=== PATIENT | female | born 1940 ===

== ENCOUNTER 2017-10-31 16:27 | Observation (INO) | payer OTHER ==
[2017-10-31] MEDS ORDERED: Sodium Chloride 0.9% 1,000 ML IV SCH (17:45)
--- NOTE | 2017-10-31 18:01 | ED PDOC ---
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 Family denies focal weakness or change in speech, but needs assistance ambulating. They state she is nearly blind due to glaucoma. Recently immigrated from [facility], had poor health care for several years prior per son due to lack of medications. No reported fever but +phlegm/ cough. Past Medical History Reviewed: Historical Data, Nursing Documentation, Vital Signs Vital Signs: Last Vital Signs Temp 98.0 F 11/01/17 13:01 Pulse 76 11/01/17 13:01 Resp 16 11/01/17 13:01 BP 101/63 11/01/17 13:01 Pulse Ox 99 11/01/17 13:00 - Medical History PMH: Diabetes, HTN - Surgical History Other surgeries: hysterectomy, breast reduction many yrs ago - Family History Family History: States: Unknown Family Hx - Living Arrangements Living Arrangements: With Family - Social History Current smoker - smoking cessation education provided: No Alcohol: None - Home Medications Home Medications: Ambulatory Orders Medication Instructions Recorded Aspirin [Aspirin Chewable] 81 mg PO DAILY 10/31/17 Calcium Carbonate/Vitamin D3 1 tab PO DAILY 10/31/17 [Calcium 500+D Tablet Chew] Losartan [Cozaar] 50 mg PO DAILY 10/31/17 Insulin Glargine,Hum.rec.anlog 10 unit SQ HS 30 Days #3 insuln.pen 11/01/17 [Lantus Solostar] metFORMIN [glucOPHAGE] 500 mg PO BID #60 tab 11/01/17 - Allergies Allergies/Adverse Reactions: Allergies Allergy/AdvReac Type Severity Reaction Status Date / Time No Known Allergies Allergy Verified 10/31/17 16:45 Review of Systems Constitutional: Positive for: Weakness, Malaise Eyes: Positive for: Vision Change ENT: Negative for: Throat Pain Cardiovascular: Positive for: Palpitations. Negative for: Chest Pain Respiratory: Positive for: Cough. Negative for: Shortness of Breath Gastrointestinal: Negative for: Nausea, Vomiting, Abdominal Pain Genitourinary Female: Positive for: Frequency. Negative for: Dysuria Musculoskeletal: Negative for: Neck Pain, Back Pain Skin: Negative for: Rash, Lesions Neurological: Positive for: Weakness (generalized), Numbness, Confusion, Altered Mental Status (confused), Dizziness. Negative for: Change in Speech Psych: Negative for: Suicidal ideation Physical Exam - Reviewed Nursing Documentation Reviewed: Yes Vital Signs Reviewed: Yes - Physical Exam Appears: Positive for: Non-toxic (elderly female dry) Head Exam: Positive for: ATRAUMATIC, NORMAL INSPECTION, NORMOCEPHALIC Skin: Positive for: Normal Color, Warm, DRY Eye Exam: Positive for: Normal appearance, EOMI, PERRL, Other (vision poor grossly bilaterally) ENT: Positive for: Normal ENT Inspection Neck: Positive for: Normal, Painless ROM Cardiovascular/Chest: Positive for: Regular Rate, Rhythm Respiratory: Positive for: CNT, Normal Breath Sounds Gastrointestinal/Abdominal: Positive for: Soft. Negative for: Tenderness, Guarding Back: Positive for: Normal Inspection Extremity: Positive for: Normal ROM Neurologic/Psych: Positive for: Alert, Facial Droop (?L facial droop mild). Negative for: Oriented (confused but awake and responsive) - Laboratory Results Result Diagrams: 11/01/17 05:45 11/01/17 05:45 - ECG O2 Sat by Pulse Oximetry: 100 Medical Decision Making Medical Decision Making: labs reveal moderate hyperglycemia ? facial droop on exam ASA ordered and admit hospitalist for workup Disposition - Clinical Impression Clinical Impression: Acute weakness - Patient ED Disposition Is Patient to be Admitted: Yes Counseled Patient/Family Regarding: Studies Performed, Diagnosis, Need For Followup - Disposition Disposition Time: 19:10 Condition: GOOD - Pt Status Changed To: Hospital Disposition Of: Observation - POA Present On Arrival: Poor Glycemic Control
--- NOTE | 2017-10-31 18:11 | CT ---
PROCEDURE: CT HEAD WITHOUT CONTRAST. HISTORY: fall, generalized weakness hyperglycemia COMPARISON: None available. TECHNIQUE: Axial computed tomography images were obtained through the head/brain without intravenous contrast. Radiation dose: Total exam DLP = 796.9 mGy-cm. This CT exam was performed using one or more of the following dose reduction techniques: Automated exposure control, adjustment of the mA and/or kV according to patient size, and/or use of iterative reconstruction technique. FINDINGS: HEMORRHAGE: No intracranial hemorrhage. BRAIN: No mass effect or edema. Atrophy. Chronic microvascular ischemic changes. VENTRICLES: Unremarkable. No hydrocephalus. CALVARIUM: Unremarkable. PARANASAL SINUSES: Unremarkable as visualized. No significant inflammatory changes. MASTOID AIR CELLS: Unremarkable as visualized. No inflammatory changes. OTHER FINDINGS: None. IMPRESSION: No acute intracranial pathology. Age related changes.
--- NOTE | 2017-10-31 18:33 | RAD ---
HISTORY: Code Stroke COMPARISON: No prior. FINDINGS: LUNGS: No active pulmonary disease. PLEURA: No significant pleural effusion identified, no pneumothorax apparent. CARDIOVASCULAR: Cardiomediastinal silhouette prominent. OSSEOUS STRUCTURES: Degenerative changes. VISUALIZED UPPER ABDOMEN: Normal. OTHER FINDINGS: None. IMPRESSION: No active disease.
[2017-10-31 18:49] LABS: BASO % 0.6 % (0.0-2.0); EOS # 0.1 K/uL (0.0-0.7); EOS % 2.6 % (0.0-4.0); HEMOGLOBIN 11.7 g/dL (12.0-16.0); LYMPH % 52.3 % (20.0-40.0); MEAN CORPUSCULAR HEMOGLOBIN 30.2 pg (27.0-31.0); MEAN CORPUSCULAR HGB CONC 33.9 g/dL (33.0-37.0); MEAN PLATELET VOLUME 8.4 fl (7.2-11.7); MONO # 0.4 K/uL (0.0-0.8); MONO % 9.2 % (0.0-10.0); NEUT # 1.4 K/uL (1.8-7.0); NEUT % 35.3 % (50.0-75.0); NRBC % 0.1 % (0.0-0.0); RBC 3.87 Mil/uL (3.80-5.20); RED CELL DISTRIBUTION WIDTH 14.1 % (11.5-14.5); WHITE BLOOD COUNT 3.9 K/uL (4.8-10.8)
[2017-10-31 18:54] LABS: ALBUMIN 3.3 g/dL (3.5-5.0); ALT/SGPT 33 U/L (9-52); AST/SGOT 25 U/L (14-36); BLOOD UREA NITROGEN 23 mg/dl (7-17); CALCIUM 9.9 mg/dL (8.4-10.2); GFR AFRICAN-AMERICAN > 60; GFR NON-AFRICAN AMERICAN > 60; HDL CHOLESTEROL 35 MG/DL (30-70)
[2017-10-31 19:06] LABS: LDL CHOLESTEROL 86 mg/dL (0-129)
[2017-10-31 19:11] LABS: PARTIAL THROMBOPLASTIN TIME 29.3 Seconds (25.6-37.1); PROTHROMBIN TIME 10.7 Seconds (9.8-13.1)
--- NOTE | 2017-10-31 20:38 | CP.PCM.HP ---
History of Present Illness - History of Present Illness History of Present Illness: 77 female with history of DM2 and HTN, recently arrived from [facility] a week ago brought by son because of generalized weakness and loss of appetite for more than 2 weeks even while she was in [facility]. Patient denied any pain, SOB or fever or chills. She used to take Lantus 10 unit SC HS but had stopped since running out of Lantus more than a week ago. Present on Admission - Present on Admission Any Indicators Present on Admission: No History of DVT/PE: No History of Uncontrolled Diabetes: No Urinary Catheter: No Decubitus Ulcer Present: No Review of Systems - Review of Systems All systems: reviewed and no additional remarkable complaints except (aside from those mentioned above, 12 point system review were negative by) Past Patient History - Past Social History Alcohol: None - CARDIAC Hx Hypertension: Yes - PSYCHIATRIC Hx Substance Use: No Meds Allergies/Adverse Reactions: Allergies Allergy/AdvReac Type Severity Reaction Status Date / Time No Known Allergies Allergy Verified 10/31/17 16:45 Physical Exam - Constitutional Appears: No Acute Distress - Head Exam Head Exam: ATRAUMATIC - Eye Exam Eye Exam: absent: PERRL (right pupil ), Scleral icterus - ENT Exam ENT Exam: Mucous Membranes Moist - Neck Exam Neck exam: Negative for: Meningismus - Respiratory Exam Respiratory Exam: absent: Rales, Rhonchi, Wheezes, Respiratory Distress - Cardiovascular Exam Cardiovascular Exam: REGULAR RHYTHM, +S1, +S2 - GI/Abdominal Exam GI & Abdominal Exam: Soft. absent: Tenderness - Rectal Exam Rectal Exam: Deferred - Neurological Exam Neurological exam: Alert (but barely talking) - Psychiatric Exam Psychiatric exam: Normal Affect - Skin Skin Exam: Dry, Intact Results - Vital Signs Recent Vital Signs: Last Vital Signs Temp 98.4 F 10/31/17 16:45 Pulse 75 10/31/17 18:18 Resp 16 10/31/17 18:18 BP 131/67 10/31/17 18:18 Pulse Ox 100 10/31/17 18:18 - Labs Result Diagrams: 11/01/17 05:45 11/01/17 05:45 Labs: Laboratory Results - last 24 hr 10/31/17 10/31/17 10/31/17 18:10 18:10 18:10 WBC 3.9 L RBC 3.87 Hgb 11.7 L Hct 34.5 MCV 89.0 MCH 30.2 MCHC 33.9 RDW 14.1 Plt Count 160 MPV 8.4 Neut % (Auto) 35.3 L Lymph % (Auto) 52.3 H Parker % (Auto) 9.2 Eos % (Auto) 2.6 Baso % (Auto) 0.6 Neut # (Auto) 1.4 L Lymph # (Auto) 2.0 Parker # (Auto) 0.4 Eos # (Auto) 0.1 Baso # (Auto) 0.0 PT 10.7 INR 1.0 APTT 29.3 Sodium 139 Potassium 4.3 Chloride 105 Carbon Dioxide 27 Anion Gap 11 BUN 23 H Creatinine 0.8 Est GFR ( Amer) > 60 Est GFR (Non-Af Amer) > 60 POC Glucose (mg/dL) Random Glucose 235 H Calcium 9.9 Total Bilirubin 0.4 AST 25 ALT 33 Alkaline Phosphatase 80 Troponin I < 0.0120 Total Protein 6.6 Albumin 3.3 L Globulin 3.3 Albumin/Globulin Ratio 1.0 Triglycerides 136 Cholesterol 151 LDL Cholesterol Direct 86 HDL Cholesterol 35 BBK History Checked 10/31/17 10/31/17 18:10 18:20 WBC RBC Hgb Hct MCV MCH MCHC RDW Plt Count MPV Neut % (Auto) Lymph % (Auto) Parker % (Auto) Eos % (Auto) Baso % (Auto) Neut # (Auto) Lymph # (Auto) Parker # (Auto) Eos # (Auto) Baso # (Auto) PT INR APTT Sodium Potassium Chloride Carbon Dioxide Anion Gap BUN Creatinine Est GFR ( Amer) Est GFR (Non-Af Amer) POC Glucose (mg/dL) 251 H Random Glucose Calcium Total Bilirubin AST ALT Alkaline Phosphatase Troponin I Total Protein Albumin Globulin Albumin/Globulin Ratio Triglycerides Cholesterol LDL Cholesterol Direct HDL Cholesterol BBK History Checked No verified bt Assessment & Plan - Assessment and Plan (Free Text) Assessment: 77 female with history of DM2 and HTN, recently arrived from [facility] a week ago brought by son because of generalized weakness and loss of appetite for more than 2 weeks even while she was in [facility]. Patient denied any pain, SOB or fever or chills. She used to take Lantus 10 unit SC HS but had stopped since running out of Lantus more than a week ago. 1. AMS CT scan of head: negative early Alzheimer's dementia?? 2. DM2 has ran out of Lantus forover 2 weeks
[2017-11-01 06:43] LABS: BASO % 0.7 % (0.0-2.0); EOS # 0.1 K/uL (0.0-0.7); HEMOGLOBIN 12.4 g/dL (12.0-16.0); LYMPH # 2.1 K/uL (1.0-4.3); LYMPH % 55.1 % (20.0-40.0); MEAN CELL VOLUME 88.3 fl (81.0-99.0); MEAN CORPUSCULAR HEMOGLOBIN 29.9 pg (27.0-31.0); MEAN CORPUSCULAR HGB CONC 33.9 g/dL (33.0-37.0); MEAN PLATELET VOLUME 8.4 fl (7.2-11.7); MONO # 0.3 K/uL (0.0-0.8); MONO % 7.9 % (0.0-10.0); NEUT # 1.2 K/uL (1.8-7.0); NEUT % 33.3 % (50.0-75.0); NRBC % 0.2 % (0.0-0.0); RBC 4.16 Mil/uL (3.80-5.20); WHITE BLOOD COUNT 3.7 K/uL (4.8-10.8)
[2017-11-01 06:49] LABS: BLOOD UREA NITROGEN 20 mg/dl (7-17); CALCIUM 9.7 mg/dL (8.4-10.2); GFR AFRICAN-AMERICAN > 60; GFR NON-AFRICAN AMERICAN > 60
[2017-11-01 06:58] LABS: B-TYPE NATRIURETIC PEPTIDE 360 pg/ml (0-900)
[2017-11-01] MEDS ORDERED: Pantoprazole 40 mg EC Tab PO ONE (07:57)
[2017-11-01] MEDS ORDERED: Pantoprazole 40 mg EC Tab PO SCH (09:00)
[2017-11-01] MEDS ORDERED: Enoxaparin 40 mg Syringe SC SCH (09:00)
[2017-11-01] MEDS ORDERED: Insulin Lispro (humaLOG) 100 Units/ml Inj SC SCH ×2 (11:30→12:00)
--- NOTE | 2017-11-01 12:39 | CP.PCM.DIS ---
Provider - Provider Date of Admission: 10/31/17 19:34 Attending physician: Alexandr Arvizu MD Time Spent in preparation of Discharge (in minutes): 25 Diagnosis - Discharge Diagnosis (1) Hyperglycemia due to type 2 diabetes mellitus Status: Acute Comment: uncontrolled because of lack of night time insulin for a week. resume Lantus 10 units SC HS. Regular insulin 5 units SC ACTID. Metformin 500mg PO BID Hospital Course - Lab Results Lab Results: Most Recent Lab Values WBC 3.7 K/uL (4.8-10.8) L 11/01/17 05:45 RBC 4.16 Mil/uL (3.80-5.20) 11/01/17 05:45 Hgb 12.4 g/dL (12.0-16.0) 11/01/17 05:45 Hct 36.7 % (34.0-47.0) 11/01/17 05:45 MCV 88.3 fl (81.0-99.0) 11/01/17 05:45 MCH 29.9 pg (27.0-31.0) 11/01/17 05:45 MCHC 33.9 g/dL (33.0-37.0) 11/01/17 05:45 RDW 14.0 % (11.5-14.5) 11/01/17 05:45 Plt Count 167 K/uL (130-400) 11/01/17 05:45 MPV 8.4 fl (7.2-11.7) 11/01/17 05:45 Neut % (Auto) 33.3 % (50.0-75.0) L 11/01/17 05:45 Lymph % (Auto) 55.1 % (20.0-40.0) H 11/01/17 05:45 Gage % (Auto) 7.9 % (0.0-10.0) 11/01/17 05:45 Eos % (Auto) 3.0 % (0.0-4.0) 11/01/17 05:45 Baso % (Auto) 0.7 % (0.0-2.0) 11/01/17 05:45 Neut # (Auto) 1.2 K/uL (1.8-7.0) L 11/01/17 05:45 Lymph # (Auto) 2.1 K/uL (1.0-4.3) 11/01/17 05:45 Gage # (Auto) 0.3 K/uL (0.0-0.8) 11/01/17 05:45 Eos # (Auto) 0.1 K/uL (0.0-0.7) 11/01/17 05:45 Baso # (Auto) 0.0 K/uL (0.0-0.2) 11/01/17 05:45 PT 10.7 Seconds (9.8-13.1) 10/31/17 18:10 INR 1.0 (0.9-1.2) 10/31/17 18:10 APTT 29.3 Seconds (25.6-37.1) 10/31/17 18:10 Sodium 138 mmol/l (132-148) 11/01/17 05:45 Potassium 4.5 MMOL/L (3.6-5.0) 11/01/17 05:45 Chloride 105 mmol/L (98-107) 11/01/17 05:45 Carbon Dioxide 25 mmol/L (22-30) 11/01/17 05:45 Anion Gap 13 (10-20) 11/01/17 05:45 BUN 20 mg/dl (7-17) H 11/01/17 05:45 Creatinine 0.7 mg/dl (0.7-1.2) 11/01/17 05:45 Est GFR ( Amer) > 60 11/01/17 05:45 Est GFR (Non-Af Amer) > 60 11/01/17 05:45 POC Glucose (mg/dL) 289 mg/dL (65-110) H 11/01/17 07:43 Random Glucose 318 mg/dL (65-105) H 11/01/17 05:45 Hemoglobin A1c 10.3 % (4.2-6.5) H 10/31/17 18:10 Calcium 9.7 mg/dL (8.4-10.2) 11/01/17 05:45 Total Bilirubin 0.4 mg/dl (0.2-1.3) 10/31/17 18:10 AST 25 U/L (14-36) 10/31/17 18:10 ALT 33 U/L (9-52) 07/09/18 18:10 Alkaline Phosphatase 80 U/L (38-126) 10/31/17 18:10 Troponin I < 0.0120 ng/mL (0.00-0.120) 11/01/17 09:25 NT-Pro-B Natriuret Pep 360 pg/ml (0-900) 11/01/17 05:45 Total Protein 6.6 G/DL (6.3-8.2) 10/31/17 18:10 Albumin 3.3 g/dL (3.5-5.0) L 10/31/17 18:10 Globulin 3.3 gm/dL (2.2-3.9) 10/31/17 18:10 Albumin/Globulin Ratio 1.0 (1.0-2.1) 10/31/17 18:10 Triglycerides 136 mg/DL (0-149) 10/31/17 18:10 Cholesterol 151 mg/dL (0-199) 10/31/17 18:10 LDL Cholesterol Direct 86 mg/dL (0-129) 10/31/17 18:10 HDL Cholesterol 35 MG/DL (30-70) 10/31/17 18:10 Blood Type O POSITIVE 10/31/17 18:10 Antibody Screen Negative 10/31/17 18:10 BBK History Checked No verified bt 10/31/17 18:10 - Hospital Course Hospital Course: 77 female with history of DM2 and HTN, recently arrived from [facility] a week ago brought by son because of generalized weakness and loss of appetite for about a week. Patient had ran out of Lantus and has not getting at night. Patient was placed on observation and restarted her regular dose from home and did well. Patient discharged in stable condition and advised to continue taking her insulin. She would follow up in [facility] in a week. Discharge Exam - Head Exam Head Exam: ATRAUMATIC - Eye Exam Eye Exam: absent: Scleral icterus - ENT Exam ENT Exam: Mucous Membranes Moist - Respiratory Exam Respiratory Exam: absent: Rales, Rhonchi, Wheezes, Respiratory Distress - Cardiovascular Exam Cardiovascular Exam: REGULAR RHYTHM, +S1, +S2 - GI/Abdominal Exam GI & Abdominal Exam: Soft. absent: Tenderness - Rectal Exam Rectal Exam: Deferred - Back Exam Back exam: NORMAL INSPECTION - Neurological Exam Neurological exam: Alert, Oriented x3 - Psychiatric Exam Psychiatric exam: Normal Affect - Skin Skin Exam: Dry, Intact Discharge Plan - Discharge Medications Prescriptions: Insulin Glargine,Hum.rec.anlog [Lantus Solostar] 10 unit SQ HS 30 Days #3 insuln.pen metFORMIN [glucOPHAGE] 500 mg PO BID #60 tab - Follow Up Plan Condition: GOOD Disposition: HOME/ ROUTINE Additional Instructions: follow up in [facility] in a week
[2017-11-01 20:02] VITALS: BP 101/63; PULSE 76; RESP 16; TEMP 98
[2017-11-01] MEDS ORDERED: Insulin Detemir 100 Units/ml Inj SC SCH (22:00)
[2017-11-02 15:09] VITALS: O2SAT 100
--- NOTE | 2017-11-03 16:40 | CARD ---
APPROVED REPORT Date of service: 10/31/2017 EKG Measurement Heart [id number] ND [id number] <Conclusion> Normal sinus rhythm Nonspecific T wave abnormality Abnormal ECG
== END 2017-11-01 13:00 | disposition home or self-care (01) ==
LOC: H.ER 16:27 → H.ERHOLD 19:34
DX: E11.65 Type 2 diabetes mellitus with hyperglycemia (principal); H40.9 Unspecified glaucoma; I10 Essential (primary) hypertension; Z79.4 Long term (current) use of insulin; R41.82 Altered mental status, unspecified
CPT/HCPCS: 70450; 71045; 80048; 80053; 80061; 82948; 83036; 83880; 84484; 85025; 85610; 85730; 86850; 86900; 96372; 99285; G0378; J1650; J7030